=== PATIENT | female | born 1995 | race Caucasian/White ===

== ENCOUNTER 2017-07-01 08:26 | Day surgery (SDC) | payer OTHER ==
[2017-07-01] MEDS ORDERED: ROCURONIUM 50 MG INJ ×2 (09:43→14:08)
[2017-07-01] MEDS ORDERED: PROPOFOL 20 ML ×3 (09:43→14:08)
[2017-07-01] MEDS ORDERED: LIDOCAINE 2% (SDV) 5 ML INJ (09:43)
[2017-07-01] MEDS ORDERED: MIDAZOLAM 1 MG/ML 2 ML INJ (09:44)
[2017-07-01] MEDS ORDERED: ROPIVACAINE 0.5 % 30 ML VIAL (09:45)
[2017-07-01] MEDS ORDERED: DEXAMETHASONE 4 MG/ML 1 ML INJ ×2 (09:45→11:16)
[2017-07-01] MEDS ORDERED: DIPHENHYDRAMINE 50 MG INJ IV (10:00)
[2017-07-01] MEDS ORDERED: MEPERIDINE 25 MG INJ IV (10:00)
[2017-07-01] MEDS ORDERED: ONDANSETRON 4 MG INJ IV (10:00)
[2017-07-01] MEDS ORDERED: HYDROmorphONE (0.2 MG/ML) 10ML SYG IV ×2 (10:00)
[2017-07-01] MEDS ORDERED: morphine 10 MG INJ IV (10:30)
[2017-07-01] MEDS ORDERED: morphine 2 MG INJ IV (10:30)
[2017-07-01] MEDS ORDERED: ONDANSETRON 4 MG INJ (11:16)
[2017-07-01] MEDS ORDERED: CEFAZOLIN 1 GM INJ ×2 (11:16→14:06)
[2017-07-01] MEDS ORDERED: ESMOLOL 10 ML ×2 (13:38→14:08)
[2017-07-01] MEDS: ROPIVACAINE 0.5 % 30 ML VIAL (14:14)
[2017-07-01] MEDS: morphine SULFATE/PF (10 MG/10 ML) INJ (14:14)
[2017-07-01] MEDS ORDERED: SUGAMMADEX SODIUM 200 MG/2 ML VIAL IV (14:24)
== END 2017-07-01 16:10 | disposition home or self-care (01) ==
LOC: SDS 08:26
DX: M23.51 Chronic instability of knee, right knee (principal); M23.41 Loose body in knee, right knee; M22.41 Chondromalacia patellae, right knee
CPT/HCPCS: 27422; 73562; 82306; 84703